=== PATIENT | male | born 1975 | race Caucasian/White ===

== ENCOUNTER 2017-04-08 16:37 | Emergency (ER) | payer BC ==
[2017-04-08 16:48] VITALS: BP 181/102; BMI 32.1
[2017-04-08] MEDS ORDERED: ADACEL TDaP IM ONE ×2 (16:50)
--- NOTE | 2017-04-08 17:25 | RAD ---
Examination: Left hand, three views History: Crush injury 5th finger Findings: There is an acute slightly displaced and minimally comminuted fracture involving the tuft o f the distal phalanx 5th finger. Overlying soft tissue injury or laceration. Proximal and middle phal anges are normal. Impression: Displaced fracture involving tuft of distal phalanx, left 5th finger. Reported By:
--- NOTE | 2017-04-08 17:40 | DR.LACERAT ---
HPI - Time Seen Time seen: 16:55 - Primary Care Physician Primary Care Physician: REMY CASAS - Complaints Chief Complaint Doctors Comments: Patient closed the metal door of a truck onto his left hand 5th digit. Chief Complaint:: PT STATES THAT ABOUT 45 MIN AGO PT CLOSED HIS LEFT PINKY UP IN THE TAIL GATE OF A TRACTOR TRAILOR AND THAT THE NAIL IS GONE ".. Self Treatment fo Chief Complaint: DRESSING INTACT ...... - Source History Provided: Patient - Mode of Arrival Mode of Arrival: Ambulatory - Timing Onset of Chief Complaint: 04/08/17 PMH - PMH Past Medical History: No Past Surgical History: No - Family History History of Family Medical Conditions: No - Social History Does patient currently use any type of tobacco product: Yes Have you used tobacco products in the last 12 months: Yes Type of Tobacco Use: Cigarettes Does any household member use tobacco: No Alcohol Use: Occasionally Do you use any recreational Drugs:: No Lives With: Family Lives Where: Home - infectious screening In the last 2 months have you had wt loss of >10#?: NO Have you had fever, night sweats or hemotysis?: No Have you traveled outside the country in the last 6 months?: No Isolation: Standard ROS - Review of Systems Eyes: No Symptoms Reported ENTM: No Symptoms Reported Respiratoy: No Symptoms Reported Cardiovascular: No Symptoms Reported Gastrointestinal/Abdominal: No Symptoms Reported Genitourinary: No Symptoms Reported Neurological: No Symptoms Reported Musculoskeletal: No Symptoms Reported Integumentary: Other (crush injury of left hand 5thd) Hematologic/Lymphatic: No Symptoms Reported Endocrine: No Symptoms Reported Psychiatric: No Symptoms Reported All Other Systems: Reviewed and Negative PE - Vital Signs Vitals: Pulse Rate 76 Respiratory Rate 18 Blood Pressure 181/102 O2 Sat by Pulse Oximetry 95 - General General Appearance: Alert, In No Apparent Distress - Head Head Exam: Normal Inspection, Atraumatic - Eyes Eye exam: Normal Appearance, PERRL, EOMI - Neck Neck Exam: Normal Inspection - Chest Chest Inspection: Normal Inspection - Respiratory Respiratory Exam: Normal Lung Sounds Bilat Respiratory Exam: Bilateral Clear to Auscultation - Cardiovascular Cardiovascular Exam: Regular Rate, Normal Rhythm - Abdominal Exam Abdominal Exam: Normal Inspection, Normal Bowel Sounds Abdominal Tenderness: negative: RUQ, RLQ, LUQ, LLQ, Epigastrium, Suprapubic, Diffuse, Mild, Moderate, Severe, Other - Extremities Extremities Exam: Normal Inspection - Back Back Exam: Normal Inspection, Full ROM - Neurologic Neurological Exam: Alert, Oriented X3, CN II-XII Intact - Psychiatric Psychiatric Exam: Normal Affect - Skin Skin Exam: Warm, Dry, Other (crush injury of 5th digit of left hand) Distribution: Generalized ROR - XRAY XRAY Interpreted by: Radiologist (There is an acute slightly displaced and minimally comminuted fracture involfing the tuft of the distal phalanx 5th finger. ) - Diagnosis Discharge Problem: Displaced fx of the distal phalanx 5th - Discharge Plan Condition: Stable - Follow ups/Referrals Follow ups/Referrals: REMY CASAS [Primary Care Provider] - 3 days - Instructions
== END 2017-04-08 17:55 | disposition home or self-care (01) ==
LOC: ER 17:11
DX: S62.637A Displaced fracture of distal phalanx of left little finger, initial encounter for closed fracture (principal); X58.XXXA Exposure to other specified factors, initial encounter; Y92.9 Unspecified place or not applicable
CPT/HCPCS: 73130; 90471; 99282